=== PATIENT | male | born 1970 | race Caucasian/White ===

== ENCOUNTER 2017-02-20 17:39 | Emergency (ER) | payer BC ==
[2017-02-20 19:00] VITALS: BP 141/96
[2017-02-20] MEDS ORDERED: Bacitracin Oint 1 GM U/D Packet TOP ONE (19:25)
--- NOTE | 2017-02-20 19:38 | EDM.PDOC ---
ED HPI GENERAL MEDICAL PROBLEM - General Chief Complaint: Laceration Stated Complaint: CUT LEFT THUMB Time Seen by Provider: 02/20/17 18:54 Source of Information: Reports: Patient History Limitations: Reports: No Limitations - History of Present Illness INITIAL COMMENTS - FREE TEXT/NARRATIVE: This patient was working on the razor sharp hands of a hunting arrow. Something slipped and the blade lacerated his left thumb. This happened just prior to arrival last tetanus one year denies Pain Score (Numeric/FACES): 0 - Related Data Allergies Allergy/AdvReac Type Severity Reaction Status Date / Time amoxicillin [Amoxicillin] Allergy Intermediate Rash Verified 02/20/17 18:52 Sulfa (Sulfonamide Allergy Intermediate Rash Verified 02/20/17 18:52 Antibiotics) Home Meds: Home Meds NK [No Known Home Meds] 02/20/17 [History] Past Medical History - Past Surgical History Musculoskeletal Surgical History: Reports: Arthroscopic Procedure, Other (See Below) Other Musculoskeletal Surgeries/Procedures:: l knee surgery l shoulder surgery Social & Family History - Tobacco Use Smoking Status *Q: Never Smoker Second Hand Smoke Exposure: No - Caffeine Use Caffeine Use: Reports: Coffee - Alcohol Use Days Per Week of Alcohol Use: 0 - Recreational Drug Use Recreational Drug Use: No ED ROS GENERAL - Review of Systems Review Of Systems: ROS reveals no pertinent complaints other than HPI. ( Sometimes the air in this place really) ED EXAM, SKIN/RASH Exam: See Below Exam Limited By: No Limitations General Appearance: Alert, WD/WN Extremities: Other (There is a 2.5 cm transverse laceration to the pad of the left thumb. Full-thickness into subcutaneous tissues. No bone or tendon involvement. It's a clean wound) Course - Vital Signs Last Recorded V/S: Last Vital Signs Temp 36.4 C 02/20/17 18:59 Pulse 71 02/20/17 18:59 Resp 16 02/20/17 18:59 BP 141/96 H 02/20/17 18:59 Pulse Ox 97 02/20/17 18:59 - Orders/Labs/Meds Meds: Medications Discontinued Medications Generic Name Dose Route Start Last Admin Trade Name Freq PRN Reason Stop Dose Admin Bacitracin 1 dose 02/20/17 19:25 02/20/17 19:34 Bacitracin Oint 1 Gm TOP 02/20/17 19:26 1 dose ONETIME ONE Administration Lidocaine HCl 5 ml 02/20/17 18:59 02/20/17 19:10 Xylocaine-Mpf 1% INJECT 02/20/17 19:00 5 ml ONETIME ONE Administration - Re-Assessments/Exams Free Text/Narrative Re-Assessment/Exam: 02/20/17 19:36 Procedure: Laceration repair The wound was anesthetized with about 3 mL of 1% plain lidocaine. The wound was cleaned with Hibiclens and flushed with copious volumes of saline. Wound was closed with running 4-0 nylon. Bacitracin dressing applied Departure - Departure Time of Disposition: 19:37 Disposition: Home, Self-Care 01 Condition: Fair Clinical Impression: Thumb laceration - Discharge Information Referrals: PCP,None [Primary Care Provider] - Additional Instructions: Remove the dressing tomorrow. Wash with soap and water. Apply a small amount of antibiotic ointment and cover with a dressing. Repeat daily. Watch for signs of infection. See your doctor in 10 days for suture removal
== END 2017-02-20 19:46 | disposition home or self-care (01) ==
LOC: JP.ED 17:39
DX: S61.012A Laceration without foreign body of left thumb without damage to nail, initial encounter (principal); Z88.1 Allergy status to other antibiotic agents; Z88.2 Allergy status to sulfonamides; W26.8XXA Contact with other sharp object(s), not elsewhere classified, initial encounter
CPT/HCPCS: 12001; 99283; A4217

== ENCOUNTER 2019-07-23 16:46 | Emergency (ER) | payer BC ==
[2019-07-23 17:12] VITALS: BP 143/101; PULSE 73
--- NOTE | 2019-07-23 17:41 | EDM.PDOC ---
ED HPI GENERAL MEDICAL PROBLEM - General Chief Complaint: Flank Pain Stated Complaint: STONE Time Seen by Provider: 07/23/19 17:10 Source of Information: Reports: Patient History Limitations: Reports: No Limitations - History of Present Illness INITIAL COMMENTS - FREE TEXT/NARRATIVE: 39-year-old male with persistent right flank and right lower abdominal pain for the past 4 days. He has a history of kidney stones, also some urinary urgency. No recent trauma, denies any fever or chills. Onset: Other (Symptoms off and on for the past several weeks, worse the last 4 days) Associated Symptoms: Denies: Confusion, Cough, Malaise, Nausea/Vomiting, Shortness of Breath Lower Abdomen Pain Score (Numeric/FACES): 6 - Related Data Allergies Allergy/AdvReac Type Severity Reaction Status Date / Time amoxicillin [Amoxicillin] Allergy Intermediate Rash Verified 07/23/19 17:05 Sulfa (Sulfonamide Allergy Intermediate Rash Verified 07/23/19 17:05 Antibiotics) Home Meds: Home Meds NK [No Known Home Meds] 02/20/17 [History] Past Medical History Genitourinary History: Reports: Renal Calculus - Past Surgical History Musculoskeletal Surgical History: Reports: Arthroscopic Procedure, Other (See Below) Other Musculoskeletal Surgeries/Procedures:: l knee surgery l shoulder surgery Social & Family History - Tobacco Use Smoking Status *Q: Never Smoker - Caffeine Use Caffeine Use: Reports: Coffee - Recreational Drug Use Recreational Drug Use: No ED ROS GENERAL - Review of Systems Review Of Systems: See Below Constitutional: Denies: Fever, Chills Respiratory: Denies: Shortness of Breath Cardiovascular: Denies: Chest Pain GI/Abdominal: Reports: Abdominal Pain. Denies: Nausea, Vomiting : Denies: No Symptoms Skin: Denies: No Symptoms ED EXAM, GENERAL - Physical Exam Exam: See Below Exam Limited By: No Limitations General Appearance: Alert, No Apparent Distress Eye Exam: Bilateral Eye: Normal Inspection Head: Atraumatic Neck: Normal Inspection Respiratory/Chest: No Respiratory Distress, Lungs Clear Cardiovascular: Regular Rate, Rhythm. No: Extra Beats GI/Abdominal: Normal Bowel Sounds, Soft, Other (Slight discomfort when palpating the right upper quadrant but no guarding or rebound) Back Exam: Normal Inspection. No: CVA Tenderness (R), CVA Tenderness (L) Extremities: Normal Inspection Neurological: Alert, Oriented Psychiatric: Normal Affect, Normal Mood Skin Exam: Warm, Dry Course - Vital Signs Last Recorded V/S: Last Vital Signs Temp 96.4 F 07/23/19 17:08 Pulse 73 07/23/19 17:08 Resp 16 07/23/19 17:08 BP 143/101 H 07/23/19 17:08 Pulse Ox 98 07/23/19 17:08 - Orders/Labs/Meds Labs: Laboratory Tests 07/23/19 Range/Units 17:16 Urine Color Yellow (YELLOW) Urine Appearance Clear (CLEAR) Urine pH 5.5 (5.0-8.0) Ur Specific [place] 1.030 (1.008-1.030) Urine Protein Negative (NEGATIVE) mg/dL Urine Glucose (UA) Normal (NEGATIVE) mg/dL Urine Ketones Negative (NEGATIVE) mg/dL Urine Occult Blood Negative (NEGATIVE) Urine Nitrite Negative (NEGATIVE) Urine Bilirubin Negative (NEGATIVE) Urine Urobilinogen 0.2 (0.2-1.0) EU/dL Ur Leukocyte Esterase Negative (NEGATIVE) Urine RBC 0-5 (0-5) Urine WBC 0-5 (0-5) Ur Epithelial Cells Not seen Amorphous Sediment Not seen Urine Bacteria Not seen Urine Mucus Not seen - Re-Assessments/Exams Free Text/Narrative Re-Assessment/Exam: 07/23/19 17:57 UA was obtained as well as a CT of the abdomen and pelvis without contrast IMPRESSION: 1. There are bilateral renal calculi in the 1-2 millimeter range though there is no evidence of current or recent obstructive uropathy on either side. 2. No specific visible etiology for right flank pain and abdominal pain 07/23/19 18:04 UA is completely normal, CAT scan is normal as well. Offered a prostate exam but the patient declined. He will be supplied with a 4 to 5-day course of Toradol to take as directed and he can recheck with his primary provider in 3 to 4 days if not improving. His urinary symptoms I think needs a urology work- up like a cystoscopy. Departure - Departure Time of Disposition: 18:20 Disposition: Home, Self-Care 01 Clinical Impression: Flank pain, acute, Increased urinary frequency - Discharge Information Instructions: Flank Pain, Adult Referrals: Nasir Valle MD [Primary Care Provider] - Forms: ED Department Discharge Care Plan Goals: Use Toradol every 6-8 hours for the next 4 to 5 days, return anytime if worsening or concerns or consider rechecking if not improving after 5 days. Stay hydrated. Sepsis Event Note - Evaluation Sepsis Screening Result: No Definite Risk - Focused Exam Date Exam was Performed: 07/24/19 Time Exam was Performed: 08:09
--- NOTE | 2019-07-23 17:58 | CRLCT ---
INDICATION: Right flank pain COMPARISON: None TECHNIQUE: CT examination of the abdomen and pelvis was performed without intravenous contrast. Thin section axial images were obtained from the lung bases through the pubic symphysis. Oral contrast was not administered. Please note that all CT scans at this facility use dose modulation, iterative reconstruction, and/or weight-based dosing when appropriate to reduce radiation dose to as low as reasonably achievable. FINDINGS: LUNG BASES: The lung bases as visualized appear normal.The heart size is normal at the lung bases. LIVER/BILIARY SYSTEM:Hepatic steatosis with geographic areas of sparing. No focal mass or biliary ductal dilatation. Normal appearing gallbladder. Postsurgical changes at the EG junction. ADRENALS: Normal non-contrast appearance KIDNEYS, URETERS and BLADDER:The kidneys are normal size. There are punctate calculi bilaterally in the 1-2 millimeter range. However, there is no finding of current or recent obstructive uropathy. No calculi within the bladder. The prostate is mildly enlarged containing calcifications. SPLEEN:Normal non-contrast appearance. PANCREAS: Normal non-contrast appearance. RETROPERITONEUM and MESENTERY: There is no mass, adenopathy or aortic aneurysm. Mild atherosclerotic vascular calcifications GASTROINTESTINAL SYSTEM: There is no evidence of diverticulitis, colitis, mechanical obstruction, or appendicitis. The small bowel as visualized appears normal.Fecal retention. Appendix was seen and appears normal. PELVIS: No free fluid or adenopathy. Prominent prostate as described above. OSSEOUS STRUCTURES and ABDOMINAL WALL: There is an age-appropriate appearance of the osseous structures.No significant abdominal wall defect. OTHER: No free fluid or free air. IMPRESSION: 1. There are bilateral renal calculi in the 1-2 millimeter range though there is no evidence of current or recent obstructive uropathy on either side. 2. No specific visible etiology for right flank pain and abdominal pain Please note that all CT scans at this facility use dose modulation, iterative reconstruction, and/or weight-based dosing when appropriate to reduce radiation dose to as low as reasonably achievable. Dictated by Shakeel Juarez MD @ Jul 23 2019 5:48PM Signed by Dr. Shakeel Juarez @ Jul 23 2019 5:56PM
== END 2019-07-23 18:19 | disposition home or self-care (01) ==
LOC: JP.ED 16:46
DX: R10.9 Unspecified abdominal pain (principal); R39.15 Urgency of urination; Z88.1 Allergy status to other antibiotic agents; Z88.2 Allergy status to sulfonamides
CPT/HCPCS: 74176; 81001; 99284-25

== ENCOUNTER 2023-07-19 10:17 | Emergency (ER) | payer BC ==
[2023-07-19] MEDS ORDERED: Sodium Chloride 0.9% 10 ML Syringe FLUSH PRN (11:15)
[2023-07-19] MEDS ORDERED: Sodium Chloride 0.9% 1,000 ML IV ONE (11:15)
[2023-07-19] MEDS ORDERED: Ketorolac 30 MG/ML SDV IVPUSH ONE (11:15)
[2023-07-19 11:16] LABS: APPEARANCE,URINE CLOUDY (CLEAR); BILIRUBIN,URINE NEGATIVE (NEGATIVE); COLOR,URINE YELLOW (YELLOW); GLUCOSE,URINE NEGATIVE (NEGATIVE); KETONES,URINE NEGATIVE (NEGATIVE); LEUKOCYTE ESTERASE,URINE NEGATIVE (NEGATIVE); NITRITE,URINE NEGATIVE (NEGATIVE); OCCULT BLOOD,URINE MODERATE (NEGATIVE); PH,URINE 5.5 (5.0-8.0); PROTEIN,URINE 30 mg/dL (NEGATIVE); UROBILINOGEN,URINE 0.2 EU/dL (0.2-1.0)
[2023-07-19 11:25] LABS: RBC,URINE 40-50 (0-5); WBC,URINE 0-5 (0-5)
[2023-07-19 11:26] LABS: AMORPHOUS SEDIMENT,URINE NOT SEEN; BACTERIA,URINE FEW; EPITHELIAL CELLS,URINE FEW; MUCUS,URINE MANY
[2023-07-19 11:29] LABS: BASOPHILS ABSOLUTE AUTO 0.03 K/uL (0.00-0.10); BASOPHILS PERCENT AUTO 0.4 % (0.1-1.3); EOSINOPHILS ABSOLUTE AUTO 0.04 K/uL (0.00-0.40); EOSINOPHILS PERCENT AUTO 0.5 % (0.0-5.4); HEMOGLOBIN 15.9 g/dL (12.9-16.9); IMMATURE GRAN PERCENT AUTO 0.3 % (0.0-0.7); LYMPHOCYTES ABSOLUTE AUTO 1.32 K/uL (0.8-3.3); LYMPHOCYTES PERCENT AUTO 17.5 % (11.4-47.7); MEAN CORPUSCULAR HEMOGLOBIN 31.9 pg (31.6-35.5); MEAN CORPUSCULAR HGB CONC 34.6 g/dL (31.6-35.5); MEAN CORPUSCULAR VOLUME 92.4 fL (81.4-99.0); MONOCYTES ABSOLUTE AUTO 0.47 K/uL (0.20-0.90); MONOCYTES PERCENT AUTO 6.2 % (3.3-12.6); NEUTROPHILS ABSOLUTE AUTO 5.66 K/uL (1.0-7.6); NEUTROPHILS PERCENT AUTO 75.1 % (40.0-78.1); PLATELET COUNT,PLT 251 K/uL (130-375); RED BLOOD CELL COUNT 4.98 M/uL (4.14-5.76); WHITE BLOOD CELL COUNT,WBC 7.5 K/uL (3.2-11.0)
[2023-07-19 11:31] LABS: IMMATURE GRAN ABSOLUTE AUTO 0.02 K/uL (0.00-0.23)
[2023-07-19 11:46] LABS: A/G RATIO 1.2 (1.2-2.2); ALANINE AMINOTRANSFERASE,ALT 70 U/L (12-78); ALBUMIN 4.2 g/dL (3.4-5.0); ALKALINE PHOSPHATASE 59 U/L (46-116); ANION GAP 9.6 mmol/L (5.0-14.0); ASPARTATE AMNIOTRANSFERASE,AST 23 U/L (15-37); BILIRUBIN TOTAL 0.8 mg/dL (0.2-1.0); BLOOD UREA NITROGEN,BUN 14 mg/dL (7-18); CALCIUM 8.5 mg/dL (8.5-10.1); CARBON DIOXIDE,CO2 28 mmol/L (21-32); CHLORIDE,CL 102 mmol/L (100-108); CREATININE 1.3 mg/dL (0.8-1.3); EST CRCL DRUG DOSING (CG) 56.39 mL/min; ESTIMATED GFR 67 mL/min (>60); GLUCOSE RANDOM 95 mg/dL (74-106); POTASSIUM,K 4.1 mmol/L (3.6-5.2); PROTEIN TOTAL,TP 7.7 g/dL (6.4-8.2); SODIUM,NA 140 mmol/L (140-148)
[2023-07-19] MEDS ORDERED: HYDROmorphone 0.5 MG/0.5 ML Syringe IVPUSH ONE (12:06)
[2023-07-19] MEDS ORDERED: Tamsulosin 0.4 MG Cap.ER PO ONE (12:13)
[2023-07-19 12:44] VITALS: BP 141/93; PULSE 81
== END 2023-07-19 13:28 | disposition home or self-care (01) ==
LOC: JP.ED 10:17
DX: N20.0 Calculus of kidney (principal); Z88.0 Allergy status to penicillin; Z88.2 Allergy status to sulfonamides
CPT/HCPCS: 36415; 74176; 80053; 81001; 83605; 85025; 96361; 96374; 96375; 99284; A9270; J1170; J1885; J3490; J7030